=== PATIENT | male | born 1955 | race Hispanic/Latino ===

== ENCOUNTER 2020-09-19 12:53 | Inpatient (IN) | payer MEDICARE ==
[~2020-09-19] VITALS: Ht 177.8 cm; Wt 110.5 kg
[2020-09-19 13:36] LABS: BASOPHILS % 0.3 % (0.0-1.0); EOSINOPHILS % 0.3 % (0.0-6.0); HEMATOCRIT 28.8 % (38.2-49.6); HEMOGLOBIN 9.3 g/dL (14.0-18.0); LYMPHOCYTES # (AUTO) 0.5 (1.0-3.2); LYMPHOCYTES % 9.1 % (18.0-39.1); MEAN CORPUSCULAR HEMOGLOBIN 31.1 pg (28-32); MEAN CORPUSCULAR HGB CONC 32.3 g/dL (31-35); MEAN CORPUSCULAR VOLUME 96.3 fL (81-99); MONOCYTES # (AUTO) 1.1 (0.2-0.8); MONOCYTES % 18.2 % (4.4-11.3); NEUTROPHILS # (AUTO) 4.2 (2.1-6.9); NEUTROPHILS % 71.8 % (38.7-80.0); PLATELET COUNT 155 x10e3/uL (140-360); RED BLOOD COUNT 2.99 x10e6/uL (4.3-5.7); RED CELL DISTRIBUTION WIDTH 15.9 % (11.7-14.4)
[2020-09-19 13:48] LABS: ALBUMIN 3.5 g/dL (3.5-5.0); ALBUMIN/GLOBULIN RATIO 0.9 (0.8-2.0); ANION GAP 22.4 mmol/L (8-16); CALCIUM 8.9 mg/dL (8.4-10.2); CREATININE, SERUM 10.04 mg/dL (0.72-1.25); POTASSIUM 5.4 mmol/L (3.5-5.1)
[2020-09-19] MEDS ORDERED: HEPARIN 25,000 UNIT 25,000 UNIT in DEXTROSE 5% 250ML 250 ML IV STA (14:11)
[2020-09-19] MEDS ORDERED: HEPARIN SOD (PORCINE) 5,000 UNIT/ML VIAL IV ONE (14:15)
[2020-09-19] MEDS ORDERED: HEPARIN 25,000 UNIT/D5W 250ML 250 ML IV ONE (15:00)
[2020-09-19] MEDS ORDERED: ASPIRIN 81 MG CHEW TAB PO ONE (15:00)
[2020-09-19] MEDS ORDERED: PRASUGREL HCL10 MG PO (15:35)
[2020-09-19] MEDS ORDERED: TRESIBA FL100 UNIT/1 (15:35)
[2020-09-19] MEDS ORDERED: ROSUVASTATIN CA10 MG PO (15:35)
[2020-09-19] MEDS ORDERED: CARVEDILOL3.125 MG PO (15:35)
[2020-09-19] MEDS ORDERED: NOVOLIN R100 UNIT/1 (15:35)
[2020-09-19] MEDS ORDERED: ASPIRIN CHEW81 MG PO (15:36)
[2020-09-19] MEDS ORDERED: LANTUS 3ML100 UNITS/ SQ (15:36)
[2020-09-19] MEDS ORDERED: HUMALOG100 UNIT/1 SQ (15:36)
[2020-09-19 15:43] LABS: LYMPHOCYTES % (MANUAL) 4 % (19-48); MONOCYTES % (MANUAL) 9 % (3.4-9.0); NEUTROPHILS % (MANUAL) 87 % (40-74); PLATELET ESTIMATE ADEQUATE; PLATELET MORPHOLOGY COMMENT NORMAL; RBC MORPHOLOGY COMMENT NORMAL
[2020-09-19 16:24] VITALS: BP 116/49
[2020-09-19] MEDS: INSULIN LISPRO 100 UNIT/1 ML 3ML VIAL SQ SCH ×3 (17:00→20:46)
[2020-09-19 17:02] VITALS: BP 116/49
[2020-09-19] MEDS: CARVEDILOL 3.125 MG TAB PO SCH (17:50)
[2020-09-19 20:26] VITALS: BP 160/63
[2020-09-19] MEDS: SIMVASTATIN 40 MG TAB PO SCH (20:43)
[2020-09-19 21:12] VITALS: BP 160/63
[2020-09-20] VITALS (8 sets, daily range): BP systolic 117–155; BP diastolic 30–47
[2020-09-20] MEDS: ACETAMINOPHEN/CODEINE 300MG - 30MG TAB PO PRN ×3 (03:15→18:30)
[2020-09-20 05:11] LABS: BASOPHILS % 0.5 % (0.0-1.0); EOSINOPHILS # (AUTO) 0.1 (0.0-0.4); EOSINOPHILS % 1.5 % (0.0-6.0); HEMATOCRIT 30.3 % (38.2-49.6); HEMOGLOBIN 9.9 g/dL (14.0-18.0); LYMPHOCYTES # (AUTO) 0.6 (1.0-3.2); LYMPHOCYTES % 10.8 % (18.0-39.1); MEAN CORPUSCULAR HEMOGLOBIN 31.2 pg (28-32); MEAN CORPUSCULAR HGB CONC 32.7 g/dL (31-35); MEAN CORPUSCULAR VOLUME 95.6 fL (81-99); MONOCYTES # (AUTO) 0.8 (0.2-0.8); MONOCYTES % 13.7 % (4.4-11.3); NEUTROPHILS # (AUTO) 4.3 (2.1-6.9); NEUTROPHILS % 73.2 % (38.7-80.0); PLATELET COUNT 154 x10e3/uL (140-360); RED BLOOD COUNT 3.17 x10e6/uL (4.3-5.7); RED CELL DISTRIBUTION WIDTH 15.8 % (11.7-14.4)
[2020-09-20 05:32] LABS: ANION GAP 22.8 mmol/L (8-16); CALCIUM 8.8 mg/dL (8.4-10.2); CREATININE, SERUM 11.16 mg/dL (0.72-1.25); POTASSIUM 4.8 mmol/L (3.5-5.1)
[2020-09-20 06:04] LABS: CREATINE KINASE MB 3.5 ng/mL (0-5.0)
[2020-09-20] MEDS: INSULIN LISPRO 100 UNIT/1 ML 3ML VIAL SQ SCH ×7 (07:16→21:00)
[2020-09-20] MEDS: CARVEDILOL 3.125 MG TAB PO SCH ×2 (08:46→17:00)
[2020-09-20] MEDS: PRASUGREL 10 MG TAB PO SCH (08:55)
[2020-09-20] MEDS: ASPIRIN 81 MG CHEW TAB PO SCH (08:56)
[2020-09-20] MEDS ORDERED: INSULIN GLARGINE 100 UNITS/ML VIAL SQ SCH (09:00)
[2020-09-20] MEDS ORDERED: SODIUM CHLORIDE 0.9% 1000ML 2,000 ML ONE (09:10)
[2020-09-20] MEDS: DEXTROSE 50% SYRINGE 50 ML IV PRN (17:14)
[2020-09-20] MEDS: SIMVASTATIN 40 MG TAB PO SCH (21:15)
[2020-09-21] VITALS (9 sets, daily range): BP systolic 109–148; BP diastolic 26–48
[2020-09-21] MEDS: ACETAMINOPHEN/CODEINE 300MG - 30MG TAB PO PRN ×5 (00:10→23:53)
[2020-09-21 04:52] LABS: BASOPHILS % 0.5 % (0.0-1.0); EOSINOPHILS % 1.1 % (0.0-6.0); HEMATOCRIT 27.3 % (38.2-49.6); HEMOGLOBIN 8.8 g/dL (14.0-18.0); LYMPHOCYTES # (AUTO) 0.7 (1.0-3.2); LYMPHOCYTES % 17.4 % (18.0-39.1); MEAN CORPUSCULAR HEMOGLOBIN 31.8 pg (28-32); MEAN CORPUSCULAR HGB CONC 32.2 g/dL (31-35); MEAN CORPUSCULAR VOLUME 98.6 fL (81-99); MONOCYTES # (AUTO) 0.5 (0.2-0.8); MONOCYTES % 13.7 % (4.4-11.3); NEUTROPHILS # (AUTO) 2.6 (2.1-6.9); PLATELET COUNT 130 x10e3/uL (140-360); RED BLOOD COUNT 2.77 x10e6/uL (4.3-5.7); RED CELL DISTRIBUTION WIDTH 15.6 % (11.7-14.4)
[2020-09-21 05:19] LABS: ALBUMIN 2.9 g/dL (3.5-5.0); ALBUMIN/GLOBULIN RATIO 0.8 (0.8-2.0); ANION GAP 15.5 mmol/L (8-16); CALCIUM 8.3 mg/dL (8.4-10.2); CREATININE, SERUM 7.48 mg/dL (0.72-1.25); POTASSIUM 4.5 mmol/L (3.5-5.1)
[2020-09-21] MEDS: INSULIN LISPRO 100 UNIT/1 ML 3ML VIAL SQ SCH ×7 (07:17→21:00)
[2020-09-21] MEDS: PRASUGREL 10 MG TAB PO SCH (10:34)
[2020-09-21] MEDS: CARVEDILOL 3.125 MG TAB PO SCH ×2 (10:34→17:15)
[2020-09-21] MEDS: DEXAMETHASONE 4 MG TAB PO SCH (10:34)
[2020-09-21] MEDS: AZITHROMYCIN 500MG/NS 250 ML 250 ML IV SCH (10:34)
[2020-09-21] MEDS: INSULIN GLARGINE 100 UNITS/ML VIAL SQ SCH (10:34)
[2020-09-21] MEDS: ASPIRIN 81 MG CHEW TAB PO SCH (10:34)
[2020-09-21] MEDS ORDERED: ONDANSETRON HCL INJ 2MG/ML 2ML 2 MG/ML VIAL IV PRN (15:30)
[2020-09-21] MEDS: SIMVASTATIN 40 MG TAB PO SCH (21:04)
[2020-09-22] VITALS (7 sets, daily range): BP systolic 107–141; BP diastolic 20–51
[2020-09-22 05:27] LABS: CREATININE, SERUM 9.29 mg/dL (0.72-1.25)
[2020-09-22 05:28] LABS: ALBUMIN/GLOBULIN RATIO 0.7 (0.8-2.0); CALCIUM 8.4 mg/dL (8.4-10.2)
[2020-09-22 05:30] LABS: ANION GAP 21.8 mmol/L (8-16); POTASSIUM 5.8 mmol/L (3.5-5.1)
[2020-09-22] MEDS ORDERED: SODIUM CHLORIDE 0.9% 1000ML 2,000 ML ONE (08:29)
[2020-09-22] MEDS: DEXAMETHASONE 4 MG TAB PO SCH (08:32)
[2020-09-22] MEDS: ASPIRIN 81 MG CHEW TAB PO SCH (08:32)
[2020-09-22] MEDS: INSULIN LISPRO 100 UNIT/1 ML 3ML VIAL SQ SCH ×7 (08:40→20:57)
[2020-09-22] MEDS: INSULIN GLARGINE 100 UNITS/ML VIAL SQ SCH (08:40)
[2020-09-22] MEDS ORDERED: SODIUM CHLORIDE 0.9% 250ML 500 ML IV PRN (13:45)
[2020-09-22] MEDS ORDERED: SODIUM CHLORIDE 0.9% 1000ML 2,000 ML IV PRN (13:45)
[2020-09-22] MEDS: AZITHROMYCIN 500MG/NS 250 ML 250 ML IV SCH (13:54)
[2020-09-22] MEDS: PRASUGREL 10 MG TAB PO SCH (13:58)
[2020-09-22] MEDS: CARVEDILOL 3.125 MG TAB PO SCH ×2 (14:06→17:00)
[2020-09-22] MEDS: DEXTROSE 50% SYRINGE 50 ML IV PRN (16:30)
[2020-09-22] MEDS: SIMVASTATIN 40 MG TAB PO SCH (21:24)
[2020-09-22] MEDS: EPOETIN ALFA-EPBX 10,000 UNIT/ML VIAL SC SCH (22:43)
[2020-09-23] VITALS (9 sets, daily range): BP systolic 72–159; BP diastolic 38–62
[2020-09-23] MEDS: ACETAMINOPHEN/CODEINE 300MG - 30MG TAB PO PRN (01:12)
[2020-09-23] MEDS: INSULIN LISPRO 100 UNIT/1 ML 3ML VIAL SQ SCH ×7 (08:37→20:59)
[2020-09-23] MEDS: ASPIRIN 81 MG CHEW TAB PO SCH (09:00)
[2020-09-23] MEDS: CARVEDILOL 3.125 MG TAB PO SCH ×2 (09:00→16:28)
[2020-09-23] MEDS: PRASUGREL 10 MG TAB PO SCH (09:00)
[2020-09-23] MEDS: DEXAMETHASONE 4 MG TAB PO SCH (09:00)
[2020-09-23] MEDS ORDERED: CEFTRIAXONE SOD 2 GM/NS 100 ML 100 ML IV SCH (10:15)
[2020-09-23] MEDS: AZITHROMYCIN 500MG/NS 250 ML 250 ML IV SCH (11:39)
[2020-09-23] MEDS: CEFTRIAXONE SOD 2 GM/NS 100 ML 100 ML IV SCH (13:00)
[2020-09-23] MEDS: REMDESIVIR 100MG/NS 100ML 100 MG in SODIUM CHLORIDE 0.9% 100 ML 100 ML IV SCH (14:47)
[2020-09-23] MEDS: SIMVASTATIN 40 MG TAB PO SCH (20:58)
[2020-09-23] MEDS: INSULIN GLARGINE 100 UNITS/ML VIAL SQ SCH (20:59)
[2020-09-24] VITALS (8 sets, daily range): BP systolic 119–149; BP diastolic 36–77
[2020-09-24] MEDS: INSULIN LISPRO 100 UNIT/1 ML 3ML VIAL SQ SCH ×7 (07:51→20:39)
[2020-09-24] MEDS: ASPIRIN 81 MG CHEW TAB PO SCH (08:07)
[2020-09-24] MEDS: PRASUGREL 10 MG TAB PO SCH (08:08)
[2020-09-24] MEDS: DEXAMETHASONE 4 MG TAB PO SCH (08:08)
[2020-09-24] MEDS: CARVEDILOL 3.125 MG TAB PO SCH ×2 (08:08→17:49)
[2020-09-24] MEDS: AZITHROMYCIN 500MG/NS 250 ML 250 ML IV SCH (10:36)
[2020-09-24] MEDS: REMDESIVIR 100MG/NS 100ML 100 MG in SODIUM CHLORIDE 0.9% 100 ML 100 ML IV SCH (11:54)
[2020-09-24] MEDS: CEFTRIAXONE SOD 2 GM/NS 100 ML 100 ML IV SCH (12:45)
[2020-09-24] MEDS: EPOETIN ALFA-EPBX 10,000 UNIT/ML VIAL SC SCH (19:57)
[2020-09-24] MEDS: SIMVASTATIN 40 MG TAB PO SCH (20:38)
[2020-09-24] MEDS: INSULIN GLARGINE 100 UNITS/ML VIAL SQ SCH (20:39)
[2020-09-25] VITALS (8 sets, daily range): BP systolic 100–149; BP diastolic 31–97
[2020-09-25 07:58] LABS: BASOPHILS % 0.3 % (0.0-1.0); HEMATOCRIT 32.1 % (38.2-49.6); HEMOGLOBIN 10.7 g/dL (14.0-18.0); LYMPHOCYTES # (AUTO) 0.3 (1.0-3.2); LYMPHOCYTES % 2.4 % (18.0-39.1); MEAN CORPUSCULAR HEMOGLOBIN 31.1 pg (28-32); MEAN CORPUSCULAR HGB CONC 33.3 g/dL (31-35); MEAN CORPUSCULAR VOLUME 93.3 fL (81-99); MONOCYTES # (AUTO) 0.8 (0.2-0.8); MONOCYTES % 6.8 % (4.4-11.3); NEUTROPHILS # (AUTO) 10.3 (2.1-6.9); NEUTROPHILS % 89.6 % (38.7-80.0); PLATELET COUNT 203 x10e3/uL (140-360); RED BLOOD COUNT 3.44 x10e6/uL (4.3-5.7); RED CELL DISTRIBUTION WIDTH 15.6 % (11.7-14.4)
[2020-09-25] MEDS: INSULIN LISPRO 100 UNIT/1 ML 3ML VIAL SQ SCH ×7 (08:03→21:39)
[2020-09-25] MEDS: ASPIRIN 81 MG CHEW TAB PO SCH (08:09)
[2020-09-25] MEDS: PRASUGREL 10 MG TAB PO SCH (08:09)
[2020-09-25] MEDS: CARVEDILOL 3.125 MG TAB PO SCH ×2 (08:09→16:58)
[2020-09-25] MEDS: ACETAMINOPHEN/CODEINE 300MG - 30MG TAB PO PRN ×2 (08:09→16:58)
[2020-09-25] MEDS: DEXAMETHASONE 4 MG TAB PO SCH (08:09)
[2020-09-25 08:15] LABS: ANION GAP 26.2 mmol/L (8-16); CALCIUM 8.5 mg/dL (8.4-10.2); CREATININE, SERUM 9.92 mg/dL (0.72-1.25); POTASSIUM 5.2 mmol/L (3.5-5.1)
[2020-09-25] MEDS: AZITHROMYCIN 500MG/NS 250 ML 250 ML IV SCH (10:30)
[2020-09-25] MEDS: REMDESIVIR 100MG/NS 100ML 100 MG in SODIUM CHLORIDE 0.9% 100 ML 100 ML IV SCH ×2 (11:00→16:58)
[2020-09-25] MEDS: CEFTRIAXONE SOD 2 GM/NS 100 ML 100 ML IV SCH ×2 (11:59→16:58)
[2020-09-25] MEDS ORDERED: EPOETIN ALFA-EPBX 10,000 UNIT/ML VIAL SC ONE (20:00)
[2020-09-25] MEDS: SIMVASTATIN 40 MG TAB PO SCH (21:36)
[2020-09-25] MEDS: INSULIN GLARGINE 100 UNITS/ML VIAL SQ SCH (21:39)
[2020-09-26] VITALS (9 sets, daily range): BP systolic 106–151; BP diastolic 46–88
[2020-09-26] MEDS: INSULIN LISPRO 100 UNIT/1 ML 3ML VIAL SQ SCH ×7 (07:30→20:25)
[2020-09-26] MEDS: ASPIRIN 81 MG CHEW TAB PO SCH (08:34)
[2020-09-26] MEDS: PRASUGREL 10 MG TAB PO SCH (08:34)
[2020-09-26] MEDS: DEXAMETHASONE 4 MG TAB PO SCH (08:34)
[2020-09-26] MEDS: CARVEDILOL 3.125 MG TAB PO SCH ×2 (08:34→15:36)
[2020-09-26] MEDS ORDERED: SODIUM CHLORIDE 0.9% 250ML 250 ML ONE (09:47)
[2020-09-26] MEDS: AZITHROMYCIN 500MG/NS 250 ML 250 ML IV SCH (10:07)
[2020-09-26] MEDS: CEFTRIAXONE SOD 2 GM/NS 100 ML 100 ML IV SCH (15:17)
[2020-09-26] MEDS: ENOXAPARIN 30 MG/0.3 ML SYR SC SCH (15:35)
[2020-09-26] MEDS: REMDESIVIR 100MG/NS 100ML 100 MG in SODIUM CHLORIDE 0.9% 100 ML 100 ML IV SCH (17:08)
[2020-09-26] MEDS: INSULIN GLARGINE 100 UNITS/ML VIAL SQ SCH (20:25)
[2020-09-26] MEDS: SIMVASTATIN 40 MG TAB PO SCH (20:25)
[2020-09-27] VITALS (8 sets, daily range): BP systolic 111–154; BP diastolic 44–84
[2020-09-27] MEDS: INSULIN LISPRO 100 UNIT/1 ML 3ML VIAL SQ SCH ×7 (07:30→20:04)
[2020-09-27] MEDS: PRASUGREL 10 MG TAB PO SCH (08:51)
[2020-09-27] MEDS: ASPIRIN 81 MG CHEW TAB PO SCH (08:51)
[2020-09-27] MEDS: DEXAMETHASONE 4 MG TAB PO SCH (08:51)
[2020-09-27] MEDS: CARVEDILOL 3.125 MG TAB PO SCH ×2 (08:51→17:00)
[2020-09-27] MEDS: AZITHROMYCIN 500MG/NS 250 ML 250 ML IV SCH (10:58)
[2020-09-27] MEDS: CEFTRIAXONE SOD 2 GM/NS 100 ML 100 ML IV SCH (16:06)
[2020-09-27] MEDS: ENOXAPARIN 30 MG/0.3 ML SYR SC SCH (17:27)
[2020-09-27] MEDS: REMDESIVIR 100MG/NS 100ML 100 MG in SODIUM CHLORIDE 0.9% 100 ML 100 ML IV SCH (17:27)
[2020-09-27] MEDS: SIMVASTATIN 40 MG TAB PO SCH (20:24)
[2020-09-27] MEDS: EPOETIN ALFA-EPBX 10,000 UNIT/ML VIAL SC SCH (20:24)
[2020-09-27] MEDS: INSULIN GLARGINE 100 UNITS/ML VIAL SQ SCH (20:27)
[2020-09-28] VITALS (7 sets, daily range): BP systolic 109–158; BP diastolic 46–85
[2020-09-28 04:54] LABS: BASOPHILS # (AUTO) 0.1 (0.0-0.1); BASOPHILS % 0.3 % (0.0-1.0); EOSINOPHILS # (AUTO) 0.1 (0.0-0.4); EOSINOPHILS % 0.4 % (0.0-6.0); HEMATOCRIT 30.4 % (38.2-49.6); HEMOGLOBIN 10.3 g/dL (14.0-18.0); LYMPHOCYTES # (AUTO) 0.5 (1.0-3.2); MEAN CORPUSCULAR HEMOGLOBIN 30.5 pg (28-32); MEAN CORPUSCULAR HGB CONC 33.9 g/dL (31-35); MEAN CORPUSCULAR VOLUME 89.9 fL (81-99); MONOCYTES # (AUTO) 1.5 (0.2-0.8); MONOCYTES % 8.8 % (4.4-11.3); NEUTROPHILS # (AUTO) 14.1 (2.1-6.9); NEUTROPHILS % 83.3 % (38.7-80.0); PLATELET COUNT 265 x10e3/uL (140-360); RED BLOOD COUNT 3.38 x10e6/uL (4.3-5.7); RED CELL DISTRIBUTION WIDTH 15.9 % (11.7-14.4)
[2020-09-28 05:16] LABS: ANION GAP 25.6 mmol/L (8-16); POTASSIUM 4.6 mmol/L (3.5-5.1)
[2020-09-28 05:17] LABS: ALBUMIN 2.9 g/dL (3.5-5.0); ALBUMIN/GLOBULIN RATIO 0.7 (0.8-2.0); CALCIUM 8.6 mg/dL (8.4-10.2); CREATININE, SERUM 10.21 mg/dL (0.72-1.25)
[2020-09-28] MEDS: INSULIN LISPRO 100 UNIT/1 ML 3ML VIAL SQ SCH ×7 (07:30→19:32)
[2020-09-28] MEDS: CARVEDILOL 3.125 MG TAB PO SCH ×2 (09:00→15:46)
[2020-09-28] MEDS: DEXAMETHASONE 4 MG TAB PO SCH (09:00)
[2020-09-28] MEDS: ASPIRIN 81 MG CHEW TAB PO SCH (09:00)
[2020-09-28] MEDS: PRASUGREL 10 MG TAB PO SCH (09:00)
[2020-09-28] MEDS: DEXTROSE 50% SYRINGE 50 ML IV PRN (11:57)
[2020-09-28] MEDS: ENOXAPARIN 30 MG/0.3 ML SYR SC SCH (16:51)
[2020-09-28] MEDS ORDERED: ACETAMINOPHEN 325 MG TAB PO PRN (19:30)
[2020-09-28] MEDS: INSULIN GLARGINE 100 UNITS/ML VIAL SQ SCH (19:33)
[2020-09-28] MEDS: SIMVASTATIN 40 MG TAB PO SCH (19:49)
[2020-09-29] VITALS (10 sets, daily range): BP systolic 104–159; BP diastolic 51–95
[2020-09-29] MEDS: INSULIN LISPRO 100 UNIT/1 ML 3ML VIAL SQ SCH ×7 (07:10→20:20)
[2020-09-29] MEDS: ASPIRIN 81 MG CHEW TAB PO SCH (08:04)
[2020-09-29] MEDS: DEXAMETHASONE SOD PHOS INJ 4 MG/ML VIAL IV SCH (08:04)
[2020-09-29] MEDS: PRASUGREL 10 MG TAB PO SCH (08:05)
[2020-09-29] MEDS: CARVEDILOL 3.125 MG TAB PO SCH ×2 (08:05→16:22)
[2020-09-29] MEDS: ENOXAPARIN 30 MG/0.3 ML SYR SC SCH (16:49)
[2020-09-29] MEDS: ALBUTEROL SULFATE HFA 8GM INHALATION AEROSOL INH SCH (19:00)
[2020-09-29] MEDS: INSULIN GLARGINE 100 UNITS/ML VIAL SQ SCH (20:20)
[2020-09-29] MEDS: EPOETIN ALFA-EPBX 10,000 UNIT/ML VIAL SC SCH (20:35)
[2020-09-29] MEDS: SIMVASTATIN 40 MG TAB PO SCH (20:35)
[2020-09-30] VITALS (10 sets, daily range): BP systolic 111–155; BP diastolic 54–78
[2020-09-30] MEDS: ALBUTEROL SULFATE HFA 8GM INHALATION AEROSOL INH SCH ×4 (01:29→19:00)
[2020-09-30] MEDS: CARVEDILOL 3.125 MG TAB PO SCH ×3 (07:32→18:29)
[2020-09-30] MEDS: ASPIRIN 81 MG CHEW TAB PO SCH (08:08)
[2020-09-30] MEDS: PRASUGREL 10 MG TAB PO SCH (08:08)
[2020-09-30] MEDS: DEXAMETHASONE SOD PHOS INJ 4 MG/ML VIAL IV SCH (08:08)
[2020-09-30] MEDS: INSULIN LISPRO 100 UNIT/1 ML 3ML VIAL SQ SCH ×7 (09:08→21:00)
[2020-09-30] MEDS: ENOXAPARIN 30 MG/0.3 ML SYR SC SCH (16:47)
[2020-09-30] MEDS: INSULIN GLARGINE 100 UNITS/ML VIAL SQ SCH (21:00)
[2020-09-30] MEDS: SIMVASTATIN 40 MG TAB PO SCH (22:21)
[2020-10-01] VITALS (7 sets, daily range): BP systolic 118–155; BP diastolic 45–67
[2020-10-01] MEDS: ALBUTEROL SULFATE HFA 8GM INHALATION AEROSOL INH SCH ×4 (01:00→19:00)
[2020-10-01 05:16] LABS: BASOPHILS % 0.1 % (0.0-1.0); HEMATOCRIT 29.7 % (38.2-49.6); HEMOGLOBIN 10.3 g/dL (14.0-18.0); LYMPHOCYTES # (AUTO) 0.2 (1.0-3.2); LYMPHOCYTES % 1.5 % (18.0-39.1); MEAN CORPUSCULAR HEMOGLOBIN 30.8 pg (28-32); MEAN CORPUSCULAR HGB CONC 34.7 g/dL (31-35); MEAN CORPUSCULAR VOLUME 88.9 fL (81-99); MONOCYTES # (AUTO) 0.8 (0.2-0.8); MONOCYTES % 5.1 % (4.4-11.3); NEUTROPHILS # (AUTO) 13.6 (2.1-6.9); NEUTROPHILS % 90.5 % (38.7-80.0); PLATELET COUNT 215 x10e3/uL (140-360); RED BLOOD COUNT 3.34 x10e6/uL (4.3-5.7); RED CELL DISTRIBUTION WIDTH 16.8 % (11.7-14.4)
[2020-10-01 05:42] LABS: ANION GAP 21.7 mmol/L (8-16); CALCIUM 8.4 mg/dL (8.4-10.2); CREATININE, SERUM 7.09 mg/dL (0.72-1.25); POTASSIUM 4.7 mmol/L (3.5-5.1)
[2020-10-01] MEDS: INSULIN LISPRO 100 UNIT/1 ML 3ML VIAL SQ SCH ×7 (07:30→21:00)
[2020-10-01] MEDS: ASPIRIN 81 MG CHEW TAB PO SCH (08:16)
[2020-10-01] MEDS: DEXAMETHASONE SOD PHOS INJ 4 MG/ML VIAL IV SCH (08:16)
[2020-10-01] MEDS: PRASUGREL 10 MG TAB PO SCH (08:17)
[2020-10-01] MEDS: CARVEDILOL 3.125 MG TAB PO SCH ×2 (08:17→17:07)
[2020-10-01] MEDS: ENOXAPARIN 30 MG/0.3 ML SYR SC SCH (17:07)
[2020-10-01] MEDS: INSULIN GLARGINE 100 UNITS/ML VIAL SQ SCH (21:00)
[2020-10-01] MEDS: SIMVASTATIN 40 MG TAB PO SCH (21:05)
[2020-10-02] VITALS (8 sets, daily range): BP systolic 130–168; BP diastolic 46–66
[2020-10-02] MEDS: ALBUTEROL SULFATE HFA 8GM INHALATION AEROSOL INH SCH ×4 (01:00→19:00)
[2020-10-02] MEDS: INSULIN LISPRO 100 UNIT/1 ML 3ML VIAL SQ SCH ×7 (07:30→20:53)
[2020-10-02] MEDS: DEXAMETHASONE SOD PHOS INJ 4 MG/ML VIAL IV SCH (08:39)
[2020-10-02] MEDS: PRASUGREL 10 MG TAB PO SCH (08:39)
[2020-10-02] MEDS: CARVEDILOL 3.125 MG TAB PO SCH ×2 (08:39→17:11)
[2020-10-02] MEDS: ASPIRIN 81 MG CHEW TAB PO SCH (08:39)
[2020-10-02] MEDS: ENOXAPARIN 30 MG/0.3 ML SYR SC SCH (17:11)
[2020-10-02] MEDS: SIMVASTATIN 40 MG TAB PO SCH (20:33)
[2020-10-02] MEDS: INSULIN GLARGINE 100 UNITS/ML VIAL SQ SCH (20:54)
[2020-10-03] VITALS (8 sets, daily range): BP systolic 107–158; BP diastolic 24–88
[2020-10-03] MEDS: ALBUTEROL SULFATE HFA 8GM INHALATION AEROSOL INH SCH ×3 (01:00→13:00)
[2020-10-03] MEDS: ASPIRIN 81 MG CHEW TAB PO SCH (07:59)
[2020-10-03] MEDS: DEXAMETHASONE SOD PHOS INJ 4 MG/ML VIAL IV SCH (07:59)
[2020-10-03] MEDS: CARVEDILOL 3.125 MG TAB PO SCH ×2 (08:00→17:30)
[2020-10-03] MEDS: INSULIN LISPRO 100 UNIT/1 ML 3ML VIAL SQ SCH ×7 (08:02→22:06)
[2020-10-03] MEDS: PRASUGREL 10 MG TAB PO SCH (08:03)
[2020-10-03] MEDS: SIMVASTATIN 40 MG TAB PO SCH (21:34)
[2020-10-03] MEDS: INSULIN GLARGINE 100 UNITS/ML VIAL SQ SCH (22:06)
[2020-10-04] VITALS (8 sets, daily range): BP systolic 86–155; BP diastolic 35–54
[2020-10-04] MEDS: ALBUTEROL SULFATE HFA 8GM INHALATION AEROSOL INH SCH ×2 (08:00→19:00)
[2020-10-04] MEDS: INSULIN LISPRO 100 UNIT/1 ML 3ML VIAL SQ SCH ×7 (08:30→20:57)
[2020-10-04] MEDS: PRASUGREL 10 MG TAB PO SCH (08:41)
[2020-10-04] MEDS: ASPIRIN 81 MG CHEW TAB PO SCH (08:41)
[2020-10-04] MEDS: DEXAMETHASONE SOD PHOS INJ 4 MG/ML VIAL IV SCH (08:41)
[2020-10-04] MEDS: CARVEDILOL 3.125 MG TAB PO SCH ×2 (08:41→16:35)
[2020-10-04 09:07] LABS: ANION GAP 19.7 mmol/L (8-16); CALCIUM 7.5 mg/dL (8.4-10.2); CREATININE, SERUM 7.87 mg/dL (0.72-1.25); POTASSIUM 4.7 mmol/L (3.5-5.1)
[2020-10-04] MEDS: INSULIN GLARGINE 100 UNITS/ML VIAL SQ SCH (20:56)
[2020-10-04] MEDS: SIMVASTATIN 40 MG TAB PO SCH (20:58)
[2020-10-05] VITALS (8 sets, daily range): BP systolic 137–165; BP diastolic 37–62
[2020-10-05] MEDS: ALBUTEROL SULFATE HFA 8GM INHALATION AEROSOL INH SCH (01:00)
[2020-10-05] MEDS: INSULIN LISPRO 100 UNIT/1 ML 3ML VIAL SQ SCH ×7 (08:30→20:05)
[2020-10-05] MEDS: DEXAMETHASONE SOD PHOS INJ 4 MG/ML VIAL IV SCH (08:38)
[2020-10-05] MEDS: ASPIRIN 81 MG CHEW TAB PO SCH (08:39)
[2020-10-05] MEDS: PRASUGREL 10 MG TAB PO SCH (08:39)
[2020-10-05] MEDS: CARVEDILOL 3.125 MG TAB PO SCH ×2 (08:44→17:02)
[2020-10-05] MEDS: ENOXAPARIN SOD INJ 60 MG/0.6 ML SYR SC SCH (17:02)
[2020-10-05] MEDS: SIMVASTATIN 40 MG TAB PO SCH (20:05)
[2020-10-05] MEDS: INSULIN GLARGINE 100 UNITS/ML VIAL SQ SCH (20:06)
[2020-10-06] VITALS (8 sets, daily range): BP systolic 94–143; BP diastolic 48–83
[2020-10-06] MEDS: ALBUTEROL SULFATE HFA 8GM INHALATION AEROSOL INH SCH ×2 (07:00→13:00)
[2020-10-06] MEDS: ASPIRIN 81 MG CHEW TAB PO SCH (08:00)
[2020-10-06] MEDS: PRASUGREL 10 MG TAB PO SCH (08:00)
[2020-10-06] MEDS: CARVEDILOL 3.125 MG TAB PO SCH ×2 (08:20→16:17)
[2020-10-06] MEDS: INSULIN LISPRO 100 UNIT/1 ML 3ML VIAL SQ SCH ×7 (08:30→21:00)
[2020-10-06 09:59] LABS: CALCIUM 7.4 mg/dL (8.4-10.2); CREATININE, SERUM 8.73 mg/dL (0.72-1.25)
[2020-10-06] MEDS: ENOXAPARIN SOD INJ 60 MG/0.6 ML SYR SC SCH (16:17)
[2020-10-06] MEDS: INSULIN GLARGINE 100 UNITS/ML VIAL SQ SCH (21:00)
[2020-10-06] MEDS: SIMVASTATIN 40 MG TAB PO SCH (21:00)
[2020-10-07] VITALS: BP 146/39
[2020-10-07 04:00] VITALS: BP 146/48
[2020-10-07 07:55] VITALS: BP 148/62
[2020-10-07] MEDS: ASPIRIN 81 MG CHEW TAB PO SCH (08:12)
[2020-10-07] MEDS: PRASUGREL 10 MG TAB PO SCH (08:12)
[2020-10-07] MEDS: CARVEDILOL 3.125 MG TAB PO SCH (08:13)
[2020-10-07 08:32] VITALS: BP 148/62
[2020-10-07] MEDS: INSULIN LISPRO 100 UNIT/1 ML 3ML VIAL SQ SCH ×4 (08:59→11:57)
[2020-10-07 11:26] VITALS: BP 118/42
[2020-10-07] MEDS ORDERED: ONDANSETRON HCL 4 MG ORAL DISINTEGRATING TAB PO PRN (15:30)
[2020-10-07 15:41] VITALS: BP 126/51
== END 2020-10-07 16:06 | disposition home or self-care (01) | DRG 177 ==
LOC: ER 13:27 → ERHOLD 14:27 → MED/SURG 16:20 → IMCU 20:15
PROVIDERS: ADMIT Internal Medicine; ATTEND Internal Medicine
PROC: 5A1D70Z Performance of Urinary Filtration, Intermittent, Less than 6 Hours Per Day (ICD-10-PCS; principal; 2020-09-20)
PROC: 8E0ZXY6 Isolation (ICD-10-PCS; 2020-09-20)
PROC: XW033E5 Introduction of Remdesivir Anti-infective into Peripheral Vein, Percutaneous Approach, New Technology Group 5 (ICD-10-PCS; 2020-09-26)
DX: U07.1 COVID-19 (principal); I21.A1 Myocardial infarction type 2; I50.23 Acute on chronic systolic (congestive) heart failure; N18.6 End stage renal disease; J12.9 Viral pneumonia, unspecified; J12.82 Pneumonia due to coronavirus disease 2019; J96.01 Acute respiratory failure with hypoxia; I13.2 Hypertensive heart and chronic kidney disease with heart failure and with stage 5 chronic kidney disease, or end stage renal disease; I25.10 Atherosclerotic heart disease of native coronary artery without angina pectoris; D63.1 Anemia in chronic kidney disease; E11.649 Type 2 diabetes mellitus with hypoglycemia without coma; E11.51 Type 2 diabetes mellitus with diabetic peripheral angiopathy without gangrene; Z95.1 Presence of aortocoronary bypass graft
CPT/HCPCS: 36415; 71045; 71250; 80048; 80053; 82550; 82553; 82728; 82948; 83880; 84484; 85025; 85379; 85730; 86704; 86705; 86706; 90962; 93005; 93041; 96360; 96372; 99284; J0456; J0696; J1100; J1644; J1650; J1815; J2405; J7030; J7050; J7799; U0002

== ENCOUNTER 2021-03-20 12:30 | Emergency (ER) | payer MEDICARE ==
[~2021-03-20] VITALS: Ht 177.8 cm; Wt 110.2 kg
[~2021-03-20 12:30] MED LIST: ASPIRIN CHEW81 MG PO; CARVEDILOL3.125 MG PO; HUMALOG100 UNIT/1 SQ; LANTUS 3ML100 UNITS/ SQ; NOVOLIN R100 UNIT/1; PRASUGREL HCL10 MG PO; ROSUVASTATIN CA10 MG PO; TRESIBA FL100 UNIT/1
== END 2021-03-20 13:09 | disposition home or self-care (01) ==
LOC: ER 12:49
DX: B02.9 Zoster without complications (principal); I10 Essential (primary) hypertension; E11.9 Type 2 diabetes mellitus without complications; E78.5 Hyperlipidemia, unspecified; I50.9 Heart failure, unspecified; I25.2 Old myocardial infarction; Z95.1 Presence of aortocoronary bypass graft; Z85.51 Personal history of malignant neoplasm of bladder; Z85.528 Personal history of other malignant neoplasm of kidney; Z85.850 Personal history of malignant neoplasm of thyroid
CPT/HCPCS: 99282